=== PATIENT | female | born 1965 | race Hispanic/Latino ===

== ENCOUNTER 2016-10-08 22:49 | Emergency (ER) | payer OTHER ==
[~2016-10-08] VITALS: Ht 152.4 cm; Wt 99.1 kg
[~2016-10-08 22:49] MED LIST: CLIN-78 PO; HYDR-4003 PO; IBUP800T28 PO; KEN25CR TP; METF500T4 PO; MINO100C3 PO; MULT1CAP33 PO
[2016-10-08 23:05] VITALS: BP 158/92; PULSE 99; RESP 22; O2SAT 97
--- NOTE | 2016-10-09 02:01 | ED.REPORT ---
HPI-Abd Pain F 40 and Over Date of Service Oct 09, 2016 ED Provider: Palomo Easton DO Pt is a 51 year old female with a history of DM who presents to the ED complaining of abdominal pain onset today. She c/o associated weakness, diarrhea nausea, and chills. She denies any other symptoms. Pt reports that she presented to the ED with her daughter who had similar symptoms, and she states that she now feels the same as her daughter did. Nursing Notes Stated Complaint: POSSIBLE FLU Chief Complaint: FLU/Cold Symptoms Nursing Notes Reviewed: Yes Allergies: Coded Allergies: No Known Allergies (Verified Allergy, Unknown, 10/08/16) Scheduled Clindamycin (Clindamycin) 300 Mg Capsule 300 MG PO QID Metformin (Metformin) 500 Mg Tablet 1,000 MG PO BID start taking from 11/10/2014 Minocycline (Minocycline) 100 Mg Capsule 100 MG PO DAILY Triamcinolone Acet (Triamcinolone Acetonide Cream) 1 Applic/0.25 Gm Cr 1 APPLIC TP BID 0.1% Scheduled PRN Hydrocodone-Acetaminophen 5-325 mg (Hydrocodone-Acetaminophen 5-325 mg) 1 Each Tablet 1 TABLET PO Q4H PRN PRN For Pain Ibuprofen (Ibuprofen) 800 Mg Tablet 800 MG PO TID PRN PRN For Pain Miscellaneous Medications Multivitamin (Multivitamins) 1 Each Capsule 1 EACH PO General Time Seen by MD: 01:38 Chief Complaint Abdominal pain Hx Obtained From: Patient Arrived By: Walk-in Sudden in Onset?: No Onset Occurred: 5 - 8 hours ago Symptom Duration: Since onset Location: : Diffuse Quality: Painful Radiation: : Does not radiate Severity: Current: Mild Severity: Maximum: Moderate Recent Healthcare: No recent doctor visit, No recent hospitalization Similar Sx Previous: No Past Medical History Past Medical History Anixety Colitis History of hernias Reports: Diabetes mellitus Past Surgical History Removal of vaginal tumor Cyst removed from head Uterine Ablation Hernia surgery Reports: , Cholecystectomy Family History Noncontributory Smoking History Never Smoker Social History Alcohol Use: Denies alcohol use Drug Use: Denies drug use Other Social History: Good social support, Frequent ED visitor, Local resident Ambulatory Status Independent Review of Systems Constitutional: Reports: Chills, Weakness - generalized, Denies: Fever Respiratory: Denies: Non-productive cough, Shortness of breath GI: Reports: Abdominal pain, Diarrhea, Nausea Complete sys rev & neg: except as marked. Physical Exam Vital Signs Vital Signs (First) Date Time Temp Pulse Resp B/P Pulse Ox O2 Delivery O2 Flow Rate FiO2 10/08/16 23:05 36.4 99 22 158/92 97 Room Air Initial VS: Reviewed Head / Eyes: Atraumatic, Normocephalic Neck: Supple, Full range of motion Extremities: Vascular intact, Neuro intact Skin: Warm, Dry, No cyanosis Neurologic: Alert, Oriented, Nonfocal Psychiatric: Mood/affect normal, Behavior normal General/Constitutional: Awake, Alert Respiratory / Chest: Atraumatic, Breath sounds NL, Breath sounds = bilat Cardiovascular: Heart rate NL, Regular rhythm, Heart sounds NL Abdomen: Atraumatic, Soft Mild diffuse abdominal pain Back: Atraumatic, Full range of motion Interpretation & Diagnostics ECG Interpretation Time: 02:16 Interpreted by: ED physician Normal ECG Interpretation: Normal ECG w/ rate of... (88) Re-Eval/Medical Decision Med Decision/Clinical Course Very pleasant 51-year-old female with a history of colitis presents with diffuse abdominal pain and diarrhea. Symptoms started precipitously today. On exam she appeared very uncomfortable and had a diffusely tender abdomen without rebound. Plan for IV free fluid resuscitation, IV analgesia and diagnostics CT scan. Care endorsed to Dr. Alvarez at 3 AM. Final disposition pending. Source of Hx: Old records Re-Evaluation/Progress : Time of Eval: 02:59 Re-Evaluation/Progress Note: Pt rechecked. Informed pt of plan for discharge. Pt understands and agrees with plan for discharge. F/U instructions and RTER warnings given. All questions addressed. Counseled Regarding: Diagnosis, Lab results, Need for follow-up, When/why to return to ED Discharge & Departure Shift Change Sign-Out Patient Care Transferred: Yes Discussed Complaint(s): Yes Laboratory Evaluation: Ordered, not yet done Imaging Studies: Ordered, not yet done Response to Therapy: Improved Primary Impression: Abdominal pain Abdominal location: generalized Qualified Code: R10.84 - Generalized abdominal pain Additional Impression: Diarrhea Diarrhea type: unspecified type Qualified Code: R19.7 - Diarrhea, unspecified Disposition: Home Discharge Condition All VS Reviewed: Yes Condition: Stable Referrals: NOPCP (PCP) Scribe Attestation Portions of this note were transcribed by Analisa Rangel. IDr. Easton personally performed the history, physical exam and medical decision-making; I reviewed and confirmed the accuracy of the information in the transcribed note. Signed by : Stanford Denis, 10/09/16. copies to: Palomo Velazquez DO Oct 09, 2016 02:01 Analisa Waite Oct 09, 2016 02:02
[2016-10-09] MEDS ORDERED: 0.9% Sodium Chloride 1,000 ML IV ONE (02:02)
[2016-10-09] MEDS ORDERED: HYDROmorphone 0.5 mg/0.5 mL iSecure Syringe IVPUSH PRN (02:05)
[2016-10-09] MEDS: Ondansetron 2 mg/mL 2 mL Inj IVPUSH PRN ×2 (03:14→05:24)
[2016-10-09 03:19] VITALS: BP 140/70; PULSE 90; RESP 20; O2SAT 100
[2016-10-09 03:27] LABS: BASOPHILS % (AUTO) 0.1 % (0-3); EOSINOPHILS % (AUTO) 0.2 % (0-5); MONOCYTES % (AUTO) 2.4 % (4-12); Mean Corpuscular Hemoglobin 28.7 pg (27.0-35.0); Mean Corpuscular Volume 83.6 fL (81-100); NEUTROPHILS % (AUTO) 91.2 % (40-74); Platelet Count 251 bil/L (150-400)
[2016-10-09 03:53] LABS: TROPONIN T 0.01 ug/L (0.0-0.011)
[2016-10-09 04:05] LABS: Magnesium 1.8 mg/dL (1.6-2.6)
[2016-10-09 04:12] LABS: APPEARANCE,URINE SLIGHTLY CLOUDY (CLEAR,HAZY); COLOR,URINE DARK YELLOW (YELLOW)
[2016-10-09 04:13] LABS: OCCULT BLOOD,URINE MODERATE (NEGATIVE); UROBILINOGEN,URINE NORMAL (NORMAL)
[2016-10-09 05:24] VITALS: BP 140/54; PULSE 81; RESP 16; O2SAT 100
[2016-10-09] MEDS ORDERED: ONDA8TAB10 PO (06:37)
[2016-10-09 06:49] VITALS: BP 132/60; PULSE 83; RESP 18; O2SAT 99
--- NOTE | 2016-10-09 07:46 | DRSVH ---
PROCEDURE: CT ABDOMEN AND PELVIS WITH CONTRAST ([id number]) INDICATIONS: diffuse pain, fever TECHNIQUE: After the administration of intravenous contrast, 5 mm thick sections acquired from the diaphragm to the symphysis. 5 mm coronal and sagittal reformats were acquired. For radiation dose reduction, the following was used: automated exposure control, adjustment of mA and/or kV according to patient rainer palmer. COMPARISON: [facility], CT, CT ABD PELVIS W CON, 11/07/2014, 11:22. [facility], CT, CT ABD PELVIS W CON, 11/04/2014, 16:31. FINDINGS: Image quality: Excellent. ABDOMEN: Lung bases: Lung bases are clear. Heart size is normal. Solid organs: Liver and spleen are normal in size and enhancement. Gallbladder is surgically absent . Biliary system is non dilated. Pancreas enhances normally. No adrenal nodules. Kidneys demonstr ate normal size and enhancement, without hydronephrosis. Peritoneum and bowel: Fluid filled prominent loops of small bowel no transition point. No free fluid or air. Normal colon and appendix. Nodes and vessels: No retroperitoneal or mesenteric adenopathy by size criteria. Aorta and inferior vena cava are normal in size. Miscellaneous: No ventral hernias. PELVIS: Genitourinary: Bladder wall thickness is normal. Miscellaneous: No inguinal hernias or adenopathy. Bones: No suspicious bony lesions. No vertebral body compression fractures. IMPRESSION: 1. Prominent fluid filled loops of small bowel most consistent with enteritis. Very early obstructive ileus is also possible but less likely. 2. There are no discrepancies with the preliminary report. Dictated by: Edd Kirkland M.D. on 10/09/2016 at 7:40 Approved by: Edd Kirkland M.D. on 10/09/2016 at 7:45
== END 2016-10-09 06:47 | disposition home or self-care (01) ==
LOC: SED 22:49
DX: R10.84 Generalized abdominal pain (principal); R19.7 Diarrhea, unspecified; R11.0 Nausea; F41.9 Anxiety disorder, unspecified; E11.9 Type 2 diabetes mellitus without complications; Z79.84 Long term (current) use of oral hypoglycemic drugs; Z90.49 Acquired absence of other specified parts of digestive tract
CPT/HCPCS: 36415; 74177; 80053; 81000; 81025; 83605; 83690; 83735; 84484; 85025; 87086; 87088; 93005; 96361; 96374; 96375; 96376; 99285; J1170; J2405; J7030; Q9967